=== PATIENT | male | born 1935 | race Caucasian/White ===

== ENCOUNTER 2017-03-12 16:07 | Inpatient (IN) | payer OTHER ==
[~2017-03-12] VITALS: Ht 185.4 cm; Wt 80.2 kg
[~2017-03-12 16:07] MED LIST: ALEN70TA5 PO; AMLO5TAB2 PO; ASPI325T80 PO; AUGMENTIN PO; CALCIUM SUPPLEMENT PO; CHOL200024 PO; CYAN2000 PO; FOLIC AC PO; L-ARGININE PO; METO-95 PO; METO-99 PO; METO50TA82 PO; MULT-516 PO; NITR0.4T28 SL; OMEGA 3 PO; OXYC-307 PO; RABE20TA18 PO; RANO500T2 PO; ROSU5TAB PO; SERT50TA5 PO; TRAM100T2 PO; TRAZ50TA18 PO; UBID10CA5 PO; UBID50CA3 PO; VITAMIN B6 PO; [UNRECOGNIZED DRUG - REMARK]; muscle relaxer PO
[2017-03-12] MEDS ORDERED: SODIUM CHLORIDE 0.9% 1,000ML IVBOLUS ONE (17:00)
[2017-03-12] MEDS ORDERED: SODIUM CHLORIDE FLUSH 10ML SYR IVF ONE (17:00)
[2017-03-12 17:07] LABS: HEMATOCRIT 55.8 % (39.2-51.8); HEMOGLOBIN 18.8 g/dL (13.7-18.0); WHITE BLOOD COUNT 12.2 x10^3/uL (3.4-10)
[2017-03-12 17:12] LABS: ASPARTATE AMINO TRANSFERASE 18 U/L (15-37); BLOOD UREA NITROGEN 26 mg/dL (7-18)
[2017-03-12] MEDS ORDERED: ALPR0.25 PO (18:47)
[2017-03-12] MEDS ORDERED: METO25TA35 PO (18:47)
[2017-03-12] MEDS ORDERED: MORPHINE SULFATE 4 MG/ML, 1ML ONE (18:59)
[2017-03-12] MEDS ORDERED: ONDANSETRON 2MG/ML, 2ML ONE (18:59)
[2017-03-12] MEDS ORDERED: morphine SULFATE 10 MG/ML, 1ML IVPush ONE (19:00)
[2017-03-12] MEDS ORDERED: ONDANSETRON 2MG/ML, 2ML IVPush ONE (19:00)
[2017-03-12] MEDS ORDERED: LORazepam 1MG TABLET ONE (20:40)
[2017-03-12] MEDS ORDERED: LORazepam 1MG TABLET PO ONE (21:00)
[2017-03-12] MEDS ORDERED: ONDANSETRON 2MG/ML, 2ML IVPush PRN (21:30)
[2017-03-12] MEDS ORDERED: POLYETHYLENE GLYCOL 17 GM PACKET PO PRN (21:30)
[2017-03-12] MEDS ORDERED: BISACODYL 10 MG SUPP PR PRN (21:30)
[2017-03-12] MEDS ORDERED: NITROGLYCERIN 0.4 MG BOTTLE (25 TABS) SL PRN (21:30)
[2017-03-12] MEDS ORDERED: TRAZODONE 100MG TABLET PO SCH (21:30)
[2017-03-12] MEDS ORDERED: ACETAMINOPHEN 325 MG TABLET PO PRN (21:30)
[2017-03-12] MEDS: SODIUM CHLORIDE 0.9% 1,000 ML IV SCH (23:10)
[2017-03-12] MEDS: METOPROLOL TARTRATE 25 MG TABLET PO SCH (23:27)
[2017-03-12] MEDS: OMEGA-3/FISH OIL CAPSULE PO SCH (23:27)
[2017-03-12] MEDS: MULTIVITAMIN 1 TABLET PO SCH (23:27)
[2017-03-12] MEDS: RANOLAZINE 500 MG TAB.ER.12H PO SCH (23:50)
[2017-03-12 23:52] VITALS: BP 163/75
[2017-03-13 01:29] VITALS: BP 174/78
[2017-03-13 05:49] LABS: BLOOD UREA NITROGEN 27 mg/dL (7-18)
[2017-03-13 05:53] LABS: ASPARTATE AMINO TRANSFERASE 14 U/L (15-37); HEMATOCRIT 46.4 % (39.2-51.8); WHITE BLOOD COUNT 12.4 x10^3/uL (3.4-10)
[2017-03-13] MEDS: SODIUM CHLORIDE 0.9% 1,000 ML IV SCH (06:17)
[2017-03-13 07:08] VITALS: BP 135/53
[2017-03-13] MEDS ORDERED: UBIDECARENONE PO SCH (09:00)
[2017-03-13] MEDS ORDERED: SERTRALINE 50MG TABLET PO SCH (09:00)
[2017-03-13] MEDS ORDERED: CYANOCOBALAMIN 1,000 MCG TABLET PO SCH (09:00)
[2017-03-13] MEDS ORDERED: SENNA/DOCUSATE TABLET PO SCH (09:00)
[2017-03-13] MEDS ORDERED: [UNRECOGNIZED DRUG - OTHER] PO SCH (09:00)
[2017-03-13] MEDS ORDERED: AMLODIPINE 5 MG TABLET PO SCH (09:00)
[2017-03-13] MEDS ORDERED: MULTIVITS,STRESS FORMULA 1 TABLET PO SCH (09:00)
[2017-03-13] MEDS ORDERED: CHOLECALCIFEROL 1,000 UNIT TABLET PO SCH (09:00)
[2017-03-13] MEDS ORDERED: ASPIRIN 325 MG TABLET EC PO SCH (09:00)
[2017-03-13] MEDS: RANOLAZINE 500 MG TAB.ER.12H PO SCH (09:06)
[2017-03-13] MEDS: OMEGA-3/FISH OIL CAPSULE PO SCH (09:06)
[2017-03-13] MEDS: MULTIVITAMIN 1 TABLET PO SCH (09:07)
[2017-03-13] MEDS: METOPROLOL TARTRATE 25 MG TABLET PO SCH (09:08)
[2017-03-14] MEDS ORDERED: ALENDRONATE 70 MG TABLET PO SCH (09:00)
== END 2017-03-13 12:04 | disposition home or self-care (01) | DRG 377 ==
LOC: ED 17:15 → EDIP 20:44 → 3NE 21:51
PROVIDERS: ADMIT Internal Medicine; ATTEND Internal Medicine
DX: K92.1 Melena (principal); N17.0 Acute kidney failure with tubular necrosis; D68.69 Other thrombophilia; R10.9 Unspecified abdominal pain; I48.91 Unspecified atrial fibrillation; D75.1 Secondary polycythemia; D75.89 Other specified diseases of blood and blood-forming organs; R39.9 Unspecified symptoms and signs involving the genitourinary system; M54.5 Low back pain; G47.33 Obstructive sleep apnea (adult) (pediatric); D72.829 Elevated white blood cell count, unspecified; F12.90 Cannabis use, unspecified, uncomplicated; I10 Essential (primary) hypertension; I25.10 Atherosclerotic heart disease of native coronary artery without angina pectoris; K21.9 Gastro-esophageal reflux disease without esophagitis; M81.0 Age-related osteoporosis without current pathological fracture; Z66 Do not resuscitate; Z87.891 Personal history of nicotine dependence; I25.2 Old myocardial infarction; Z91.19 Patient's noncompliance with other medical treatment and regimen; Z95.1 Presence of aortocoronary bypass graft; Z88.6 Allergy status to analgesic agent; Z88.8 Allergy status to other drugs, medicaments and biological substances; R07.81 Pleurodynia
CPT/HCPCS: 36415; 74022; 74176; 80053; 81001; 83690; 85025; 85610; 85730; 86677; 86850; 86900; 87086; 93005; 96361; 96374; 96375; J2405; J2270; J7030

== ENCOUNTER 2017-12-25 15:54 | Inpatient (IN) | payer OTHER ==
[~2017-12-25] VITALS: Ht 182.9 cm; Wt 88.6 kg
[~2017-12-25 15:54] MED LIST changes: +ALPR0.25 PO; +ASPI-621 PO; +ASPI500T4 PO; +CHOL2000 PO; +FLUO20CA8 PO; +ISOS30TA8 PO; +METO25TA35 PO; +OMEP-110 PO; +PANT40TA5 PO; +RANI150T23 PO; -TRAM100T2 PO; +TRAM100T33 PO
[2017-12-25] MEDS ORDERED: SODIUM CHLORIDE FLUSH 10ML SYR IVF ONE (16:30)
[2017-12-25] MEDS ORDERED: MORPHINE SULFATE 4 MG/ML, 1ML IVPush PRN (16:30)
[2017-12-25] MEDS ORDERED: ALIR150P SQ (16:32)
[2017-12-25] MEDS ORDERED: ASPI325T17 PO (16:32)
[2017-12-25] MEDS ORDERED: RABE20TA26 PO (16:32)
[2017-12-25 16:59] LABS: BASOPHILS # (AUTO) 0.06 x10^3/uL (0-0.1); BASOPHILS % (AUTO) 1 % (0-1); EOSINOPHILS # (AUTO) 0.06 x10^3/uL (0-0.4); EOSINOPHILS % (AUTO) 1 % (1-7); LYMPHOCYTES # (AUTO) 2.14 x10^3/uL (1-3.4); LYMPHOCYTES % (AUTO) 19 % (22-44); MD NO; MEAN CORPUSCULAR HGB CONC 32.2 g/dL (33.2-36.2); MEAN CORPUSCULAR VOLUME 80.8 fL (81-97); MEAN PLATELET VOLUME 9.4 fL (7.4-10.4); MONOCYTES # (AUTO) 0.86 x10^3/uL (0.2-0.8); MONOCYTES % (AUTO) 8 % (2-9); NEUTROPHILS # (AUTO) 8.27 x10^3/uL (1.8-6.8); NEUTROPHILS % (AUTO) 73 % (42-75); PLATELET COUNT 259 x10^3/uL (130-400); RED BLOOD COUNT 4.13 x10^6/uL (4.38-5.82); RED CELL DISTRIBUTION WIDTH 19.6 % (9.4-14.8)
[2017-12-25 17:07] LABS: INTERNATIONAL NORMALIZED RATIO 1.05 (0.93-1.1); PROTHROMBIN TIME 10.8 Seconds (9.6-11.5)
[2017-12-25 17:10] LABS: ALANINE AMINOTRANSFERASE 17 U/L (12-78); ALBUMIN 3.2 g/dL (3.4-5.0); ANION GAP 8 mmol/L (5-15); CALCIUM 8.4 mg/dL (8.5-10.1); CHLORIDE 111 mmol/L (98-107); CREATININE 1.24 mg/dL (0.7-1.3)
[2017-12-25 17:14] LABS: ALKALINE PHOSPHATASE 43 U/L (45-117); BILIRUBIN,TOTAL 0.4 mg/dL (0.2-1.0); TOTAL PROTEIN 5.8 g/dL (6.4-8.2)
[2017-12-25] MEDS ORDERED: MORPHINE SULFATE 4 MG/ML, 1ML ONE (17:24)
[2017-12-25] MEDS ORDERED: SODIUM CHLORIDE FLUSH 10ML SYR IVF PRN (18:00)
[2017-12-25] MEDS ORDERED: HEPARIN 5,000 UNITS/ML, 1ML ONE (18:04)
[2017-12-25] MEDS ORDERED: HEPARIN 25,000 UNITS/500ML PMX 500 ML ONE (18:04)
[2017-12-25] MEDS ORDERED: HEPARIN 5,000 UNITS/ML, 1ML IV ONE ×3 (18:30)
[2017-12-25] MEDS ORDERED: HEPARIN 25,000 UNITS/500ML PMX 500 ML IV PRN ×3 (18:30)
[2017-12-25] MEDS ORDERED: HEPARIN 5,000 UNITS/ML, 1ML IV PRN ×3 (18:30)
[2017-12-25] MEDS ORDERED: ONDANSETRON 2MG/ML, 2ML IVPush PRN (19:30)
[2017-12-25] MEDS ORDERED: hydrALAzine 20 MG/ML, 1ML IVPush PRN (19:30)
[2017-12-25] MEDS ORDERED: METOCLOPRAMIDE 5 MG/ML, 2ML IVPush PRN (19:30)
[2017-12-25] MEDS ORDERED: ONDANSETRON ODT 4 MG PO PRN (19:30)
[2017-12-25 20:02] VITALS: BP 147/82
[2017-12-25] MEDS: morphine SULFATE 10 MG/ML, 1ML IVPush PRN (20:21)
[2017-12-26 00:54] LABS: BASOPHILS # (AUTO) 0.06 x10^3/uL (0-0.1); BASOPHILS % (AUTO) 1 % (0-1); EOSINOPHILS # (AUTO) 0.21 x10^3/uL (0-0.4); EOSINOPHILS % (AUTO) 2 % (1-7); LYMPHOCYTES # (AUTO) 3.55 x10^3/uL (1-3.4); LYMPHOCYTES % (AUTO) 30 % (22-44); MD NO; MEAN CORPUSCULAR HGB CONC 31.9 g/dL (33.2-36.2); MEAN CORPUSCULAR VOLUME 81.5 fL (81-97); MEAN PLATELET VOLUME 9.8 fL (7.4-10.4); MONOCYTES # (AUTO) 1.38 x10^3/uL (0.2-0.8); MONOCYTES % (AUTO) 12 % (2-9); NEUTROPHILS # (AUTO) 6.82 x10^3/uL (1.8-6.8); NEUTROPHILS % (AUTO) 57 % (42-75); PLATELET COUNT 247 x10^3/uL (130-400); RED BLOOD COUNT 4.16 x10^6/uL (4.38-5.82); RED CELL DISTRIBUTION WIDTH 19.8 % (9.4-14.8)
[2017-12-26 01:02] LABS: ANION GAP 6 mmol/L (5-15); CALCIUM 8.4 mg/dL (8.5-10.1); CHLORIDE 113 mmol/L (98-107); CHOLESTEROL, TOTAL 125 mg/dL (140-239); CREATININE 1.18 mg/dL (0.7-1.3)
[2017-12-26 01:05] LABS: CHOL/HDL RATIO 3.1; HDL CHOL % 32 % (26-37); HDL CHOLESTEROL (DIRECT) 40 mg/dL (40-60); LDL CHOLESTEROL,CALCULATED 66 mg/dL (54-169); LDL/HDL RATIO 1.7 (0.5-3.0); TRIGLYCERIDES 93 mg/dL (50-200); VLDL CHOLESTEROL 19 mg/dL (0-25)
[2017-12-26 02:11] VITALS: BP 107/66
[2017-12-26 07:29] VITALS: BP 135/81
[2017-12-26] MEDS: morphine SULFATE 10 MG/ML, 1ML IVPush PRN ×2 (07:51→22:35)
[2017-12-26] MEDS ORDERED: NITROGLYCERIN OINT 2%, 1GM TP SCH (08:00)
[2017-12-26] MEDS ORDERED: ALENDRONATE 70 MG TABLET PO SCH (08:30)
[2017-12-26] MEDS ORDERED: ASPIRIN 325 MG TABLET PO SCH (09:00)
[2017-12-26] MEDS ORDERED: MIDAZOLAM 1 MG/ML, 5ML ONE (09:54)
[2017-12-26] MEDS ORDERED: FENTANYL PF 100 MCG/2ML ONE (09:55)
[2017-12-26] MEDS ORDERED: BIVALIRUDIN 250 MG ONE (09:55)
[2017-12-26] MEDS ORDERED: LIDOCAINE/PF 1%, 30ML ONE (09:55)
[2017-12-26] MEDS ORDERED: TICAGRELOR 90 MG TABLET ONE (10:51)
[2017-12-26] MEDS ORDERED: BIVALIRUDIN 250 MG in DEXTROSE 5% 50 ML IV SCH (11:08)
[2017-12-26] MEDS: MULTIVITAMIN 1 TABLET PO SCH ×3 (11:45→20:18)
[2017-12-26] MEDS: METOPROLOL TARTRATE 25 MG TABLET PO SCH ×2 (11:45→20:10)
[2017-12-26] MEDS: PANTOPROZOLE 40MG TABLET PO SCH ×2 (11:45→20:11)
[2017-12-26] MEDS: FLUOXETINE HCL 20 MG CAPSULE PO SCH (11:46)
[2017-12-26] MEDS: ISOSORBIDE MONONITRATE ER 30 MG TABLET PO SCH (11:46)
[2017-12-26] MEDS: SODIUM CHLORIDE 0.9% 1,000 ML IV SCH ×2 (11:58→19:08)
[2017-12-26 13:33] VITALS: BP 146/97
[2017-12-26] MEDS ORDERED: ACETAMINOPHEN 325 MG TABLET PO PRN (20:00)
[2017-12-26] MEDS ORDERED: NITROGLYCERIN OINT 2%, 1GM TP PRN (20:00)
[2017-12-26] MEDS: TICAGRELOR 90 MG TABLET PO SCH (20:09)
[2017-12-26 20:10] VITALS: BP 122/73
[2017-12-26 21:23] VITALS: BP 137/74
[2017-12-26] MEDS ORDERED: NITROGLYCERIN 0.4 MG BOTTLE (25 TABS) SL PRN (21:30)
[2017-12-26] MEDS: NITROGLYCERIN 0.4 MG BOTTLE (25 TABS) SL PRN ×4 (21:52→22:17)
[2017-12-26] MEDS ORDERED: MAALOX/HYOSCYAMINE/LIDOCAINE 45 ML BTL PO ONE (22:00)
[2017-12-27 01:08] VITALS: BP 115/67
[2017-12-27] MEDS: SODIUM CHLORIDE 0.9% 1,000 ML IV SCH (03:08)
[2017-12-27 05:15] LABS: ALBUMIN 3.1 g/dL (3.4-5.0); ANION GAP 7 mmol/L (5-15); CALCIUM 8.5 mg/dL (8.5-10.1); CHLORIDE 110 mmol/L (98-107); CREATININE 1.14 mg/dL (0.7-1.3)
[2017-12-27] MEDS: morphine SULFATE 10 MG/ML, 1ML IVPush PRN (07:35)
[2017-12-27 07:57] VITALS: BP 150/70
[2017-12-27] MEDS: MULTIVITAMIN 1 TABLET PO SCH (08:38)
[2017-12-27] MEDS: PANTOPROZOLE 40MG TABLET PO SCH (08:40)
[2017-12-27] MEDS: ISOSORBIDE MONONITRATE ER 30 MG TABLET PO SCH (08:40)
[2017-12-27] MEDS: FLUOXETINE HCL 20 MG CAPSULE PO SCH (08:40)
[2017-12-27] MEDS: METOPROLOL TARTRATE 25 MG TABLET PO SCH (08:41)
[2017-12-27] MEDS: TICAGRELOR 90 MG TABLET PO SCH (08:41)
[2017-12-27] MEDS ORDERED: ASPIRIN 81 MG TABLET CHEW PO SCH (09:00)
[2017-12-27] MEDS ORDERED: LISINOPRIL 5 MG TABLET PO SCH (09:00)
[2017-12-27] MEDS ORDERED: LISI5TAB7 PO (10:25)
[2017-12-27] MEDS ORDERED: TICA90TA PO (10:25)
[2017-12-27] MEDS ORDERED: ASPI-515 PO (10:25)
[2017-12-27] MEDS ORDERED: SODIUM CHLORIDE 0.9% 1,000 ML IV SCH (11:08)
== END 2017-12-27 12:35 | disposition home or self-care (01) | DRG 246 ==
LOC: ED 17:51 → EDIP 17:55 → 5SO 19:47
PROVIDERS: ADMIT Internal Medicine; ATTEND Internal Medicine
PROC: 027035Z Dilation of Coronary Artery, One Artery with Two Drug-eluting Intraluminal Devices, Percutaneous Approach (ICD-10-PCS; principal; 2017-12-26)
PROC: 4A023N7 Measurement of Cardiac Sampling and Pressure, Left Heart, Percutaneous Approach (ICD-10-PCS; 2017-12-26)
PROC: B2111ZZ Fluoroscopy of Multiple Coronary Arteries using Low Osmolar Contrast (ICD-10-PCS; 2017-12-26)
PROC: B2151ZZ Fluoroscopy of Left Heart using Low Osmolar Contrast (ICD-10-PCS; 2017-12-26)
PROC: 02703ZZ Dilation of Coronary Artery, One Artery, Percutaneous Approach (ICD-10-PCS; 2017-12-26)
DX: I21.4 Non-ST elevation (NSTEMI) myocardial infarction (principal); I50.33 Acute on chronic diastolic (congestive) heart failure; E44.1 Mild protein-calorie malnutrition; J84.9 Interstitial pulmonary disease, unspecified; I25.110 Atherosclerotic heart disease of native coronary artery with unstable angina pectoris; D64.9 Anemia, unspecified; D72.829 Elevated white blood cell count, unspecified; E78.5 Hyperlipidemia, unspecified; F41.9 Anxiety disorder, unspecified; G89.29 Other chronic pain; I10 Essential (primary) hypertension; Z82.49 Family history of ischemic heart disease and other diseases of the circulatory system; Z87.891 Personal history of nicotine dependence; Z95.5 Presence of coronary angioplasty implant and graft; Z68.26 Body mass index [BMI] 26.0-26.9, adult
CPT/HCPCS: 36415; 71045; 80048; 80053; 80061; 82040; 83735; 83880; 84100; 84484; 85014; 85018; 85025; 85520; 85610; 85730; 93005; 93459; 96365; 96375; 99156; 99157; C1760; C1769; C1876; C1894; J0583; J1644; J2250; J2405; J3010; J3490; C1725; C1874; C1887; J2270; J7030; Q9967

== ENCOUNTER → 2021-02-24 | Outpatient (CLI) | payer MEDICARE ==
[~2021-02-24] MED LIST changes: -ALEN70TA5 PO; +ALEN70TA77 PO; +ALIR150P3 SQ; +AMLO-150 PO; -AMLO5TAB2 PO; -ASPI-621 PO; +ASPI-963 PO; +ASPI325T17 PO; +ASPI81TA45 PO; +FLUO20CA23 PO; -FLUO20CA8 PO; +LISI5TAB7 PO; -OXYC-307 PO; +OXYC-380 PO; -PANT40TA5 PO; +PANT40TA6 PO; +RABE20TA29 PO; +RANI-467 PO; -RANI150T23 PO; +SERT50TA28 PO; -SERT50TA5 PO; +TICA90TA PO; -TRAZ50TA18 PO; +TRAZ50TA66 PO
[2021-02-24 11:53] LABS: BASOPHILS % (AUTO) 1 % (0-1); EOSINOPHILS % (AUTO) 4 % (1-7); LYMPHOCYTES % (AUTO) 25 % (22-44); MEAN CORPUSCULAR HEMOGLOBIN 34.4 pg (27.5-34.5); MEAN CORPUSCULAR HGB CONC 33.6 g/dL (33.2-36.2); MEAN PLATELET VOLUME 9.7 fL (7.4-10.4); MONOCYTES % (AUTO) 10 % (2-9); NEUTROPHILS % (AUTO) 61 % (42-75); PLATELET COUNT 201 x10^3/uL (130-400); RED BLOOD COUNT 4.34 x10^6/uL (4.38-5.82); RED CELL DISTRIBUTION WIDTH 14.1 % (9.4-14.8)
[2021-02-24 12:01] LABS: ALBUMIN 3.6 g/dL (3.4-5.0); ANION GAP 9 mmol/L (5-15); CALCIUM 9.1 mg/dL (8.5-10.1); CHLORIDE 103 mmol/L (98-107)
[2021-02-24 12:04] LABS: ALANINE AMINOTRANSFERASE 27 U/L (12-78); ALKALINE PHOSPHATASE 54 U/L (45-117); BILIRUBIN,TOTAL 0.3 mg/dL (0.2-1.0); CHOLESTEROL, TOTAL 299 mg/dL (140-239); CREATININE 1.47 mg/dL (0.7-1.3); HDL CHOL % 17 % (26-37); HDL CHOLESTEROL (DIRECT) 50 mg/dL (40-60); LDL CHOLESTEROL,CALCULATED 209 mg/dL (54-169); LDL/HDL RATIO 4.2 (0.5-3.0); TOTAL PROTEIN 6.6 g/dL (6.4-8.2); TRIGLYCERIDES 198 mg/dL (50-200); VLDL CHOLESTEROL 40 mg/dL (0-25)
== END | disposition home or self-care (01) ==
LOC: LAB 11:28
PROVIDERS: ATTEND Registered Nurse
DX: I10 Essential (primary) hypertension (principal); E78.2 Mixed hyperlipidemia
CPT/HCPCS: 36415; 80053; 80061; 85025